=== PATIENT | male | born 1980 | race Caucasian/White ===

== ENCOUNTER 2023-06-29 15:14 | Emergency (ER) | payer BC ==
[~2023-06-29] VITALS: Ht 170.2 cm; Wt 81.8 kg
[2023-06-29] MEDS ORDERED: NS 100 ML IV SCH (15:30)
[2023-06-29] MEDS ORDERED: Iohexol 300 - 100 ML VIAL IV ONE (15:30)
[2023-06-29 19:00] VITALS: BP 124/69; PULSE 60; TEMP 95.9
== END 2023-06-29 19:00 | disposition short-term general hospital (02) ==
LOC: COL.ER 15:14
DX: S06.5XAA Traumatic subdural hemorrhage with loss of consciousness status unknown, initial encounter (principal); S02.119A Unspecified fracture of occiput, initial encounter for closed fracture; X58.XXXA Exposure to other specified factors, initial encounter
CPT/HCPCS: Q9967